=== PATIENT | male | born 1955 | race Caucasian/White ===

== ENCOUNTER → 2017-06-05 | Outpatient (CLI) | payer BC ==
[~2017-06-05] MED LIST: ADVIN25/60 INH; ALBUAER2 INH; BACL10TA PO; MULT-506 PO; RANI150T3 PO; WARF5TAB90 PO
--- NOTE | 2017-06-05 10:16 | DIAGNOSTIC IMAGING REPORT ---
LEFT FOOT 3 VIEWS HISTORY: PAIN IN LEFT FOOT COMPARISON: None. FINDINGS: There is no fracture or dislocation. Soft tissues are unremarkable. No radiopaque foreign bodies. Mild vascular calcifications. IMPRESSION: No fracture or dislocation within the left foot. Electronically signed by: Donovan Herman M.D. 06/05/2017 10:15 AM Dictated Date/Time: 06/05/2017 10:12 AM
== END | disposition home or self-care (01) ==
LOC: C.RAD1850 10:01
PROVIDERS: ATTEND Family Medicine
DX: M79.672 Pain in left foot (principal)

== ENCOUNTER → 2017-08-15 | Day surgery (SDC) | payer BC ==
[2017-08-05 09:11] VITALS: Ht 177.8 cm; Wt 71.8 kg
[~2017-08-15] VITALS: Ht 177.8 cm; Wt 71.8 kg
[~2017-08-15] MED LIST changes: -ADVIN25/60 INH; -ALBUAER2 INH; -BACL10TA PO; +CHOLCAP5 PO; -MULT-506 PO; +PROPOFOL IV EMULSION 10 MG/ML 20 ML VIAL IV ONE; -RANI150T3 PO; +VNTHFA/IN INH; +WARF5TAB7 PO; -WARF5TAB90 PO
[2017-08-15 12:07] LABS: INR 2.1 (0.9-1.1)
--- NOTE | 2017-08-15 13:01 | Endo History and Physical ---
History & Physical Date of Service: Aug 15, 2017. Chief Complaint: screening, family history of colon polyps Referring Physician: Dr. Arvizu History of Present Illness For colonoscopy Past Surgical History Hx Cardiac Surgery: No Hx Internal Defibrillator: No Hx Pacemaker: No Hx Abdominal Surgery: No Hx Post-Op Nausea and Vomiting: No Hx Cancer Surgery: No Hx Thoracic Surgery: No Hx Orthopedic: Yes (CERVICAL SURGERY) Hx Urinary Tract Surgery: No Family History Polyp Social History Smoking Status: Never Smoker Hx Substance Use: No Hx Alcohol Use: Yes (RARELY) Allergies Coded Allergies: No Known Allergies (Verified , 08/15/17) Current Medications Reported Home Medications Medications Dose Route/Sig Max Daily Dose Days Date Category Ventolin Hfa (Albuterol) 200 Puffs/88295 Mcg Aers 2-4 Puffs INH Q6H PRN 08/05/17 Reported Vitamin D3 (Cholecalciferol) 5,000 Unit Cap 1 Cap PO QAM 08/05/17 Reported Jantoven (Warfarin Sodium) 5 Mg Tab 5 Mg PO DAILY 08/05/17 Reported Vital Signs Weight (Kilograms): 71.82 Height (Feet): 5 Height (Inches): 10 Date Time Temp Pulse Resp B/P (MAP) Pulse Ox O2 Delivery O2 Flow Rate FiO2 08/15/17 12:43 37 85 18 107/71 (83) 95 Room Air Physical Exam General Appearance: + thin Respiratory/Chest: Respiratory effort: no dyspnea Cardiovascular: Heart Auscultation: RRR Abdomen: Inspection & Palpation: soft Assessment and Plan Fam hx colon polyps for colonoscopy
--- NOTE | 2017-08-15 13:40 | Discharge Instructions ---
Endoscopy Patient Instructions Date / Procedure(s) Performed Aug 15, 2017. Colonoscopy Allergy Information Coded Allergies: No Known Allergies (Verified , 08/15/17) Discharge Date / Findings Aug 15, 2017. diverticulosis, hemorrhoids Medication Instructions Stopped Medication(s): Coumadin last dose 08/14/17. Restart Stopped Medication(s): resume meds Reported Home Medications Medications Dose Route/Sig Max Daily Dose Days Date Category Ventolin Hfa (Albuterol) 200 Puffs/52628 Mcg Aers 2-4 Puffs INH Q6H PRN 08/05/17 Reported Vitamin D3 (Cholecalciferol) 5,000 Unit Cap 1 Cap PO QAM 08/05/17 Reported Jantoven (Warfarin Sodium) 5 Mg Tab 5 Mg PO DAILY 08/05/17 Reported Provider Instructions Activity Restrictions - No exercising or heavy lifting for 24 hours. - Do not drink alcohol the day of the procedure. - Do not drive a car or operate machinery until the day after the procedure. - Do not make any important decisions or sign important papers in 24 hours after the procedure. Following Day: - Return to full activity which may include returning to work/school. Diet Start your diet with liquids and light foods (jello, soup, juice, toast). Then eat your usual diet if not nauseated. Treatment For Common After Affects For mild abdominal pain, bloating, or excessive gas: - Rest - Eat lightly - Lie on right side Follow-Up Information Follow-up with Dr. Arvizu as scheduled Anesthesia Information What You Should Know You have had a procedure that required some medicine to reduce anxiety and discomfort. This treatment is called moderate sedation. After receiving the treatment, you may be sleepy, but you will be able to breathe on your own. The effects of the treatment may last for several hours. Follow these instructions along with Activity/Diet recommendations noted above: * Do NOT do anything where dizziness or clumsiness would be dangerous. * Rest quietly at home today, then you can be up and about tomorrow. * Have a responsible person stay with you the rest of today. * You may have had an I.V. today. If so, you may take the dressing off later today. Recommendations Call your doctor if: * Trouble breathing * Continuous vomiting for more than 24 hours * Temperature above 101 degrees * Severe abdominal pain or bloating * Pain not relieved by pain medicine ordered * There is increased drainage or redness from any incision * A large amount of rectal bleeding greater than 2-3 tablespoons. (If you had a polyp/s removed or have hemorrhoids, a small amount of blood - from the rectum is to be expected.) * You have any unanswered questions or concerns. IN THE EVENT OF A SERIOUS EMERGENCY, GO TO THE NEAREST EMERGENCY ROOM Your discharge instructions were prepared by provider Gera Rodriguez. Patient Instructions Signature Page León Galindo Patient (or Guardian) Signature/Date: I have read and understand the instructions given to me by my caregivers. Caregiver/RN/Doctor Signature/Date: The above-named patient and/or guardian has received patient instructions on this date. + Original Patient Signature Page (only) stays with chart. Please make copy for patient.
--- NOTE | 2017-08-15 13:50 | GI REPORT ---
Procedure Date: 08/15/2017 12:44 PM Procedure: Colonoscopy Indications: Family history of colonic polyps in a first-degree relative Medicines: Propofol total dose 240 mg IV Complications: No immediate complications. Estimated Blood Loss: Estimated blood loss: none. Procedure: Pre-Anesthesia Assessment: - Prior to the procedure, a History and Physical was performed, and patient medications, allergies and sensitivities were reviewed. The patient's tolerance of previous anesthesia was reviewed. - The risks and benefits of the procedure and the sedation options and risks were discussed with the patient. All questions were answered and informed consent was obtained. After I obtained informed consent, the scope was passed under direct vision. Throughout the procedure, the patient's blood pressure, pulse, and oxygen saturations were monitored continuously. The On-site loaner was introduced through the anus and advanced to the cecum, identified by appendiceal orifice and ileocecal valve. The colonoscopy was somewhat difficult due to significant looping. Successful completion of the procedure was aided by applying abdominal pressure. The patient tolerated the procedure well. The quality of the bowel preparation was good. Findings: Non-bleeding external and internal hemorrhoids were found during perianal exam. The hemorrhoids were moderate. Multiple diverticula were found in the sigmoid colon. Impression: - Non-bleeding external and internal hemorrhoids. - Diverticulosis in the sigmoid colon. - No specimens collected. Recommendation: - Discharge patient to home (ambulatory). - Continue present medications. - Repeat colonoscopy in 5 years for surveillance. - Return to primary care physician PRN. Gera Rodriguez M.D. Gera Rodriguez MD 08/15/2017 1:49:42 PM This report has been signed electronically. Note Initiated On: 08/15/2017 12:44 PM I attest to the content of the Intraoperative Record and orders documented therein, exceptions below
[2017-08-15 14:06] VITALS: BP 113/75; PULSE 84; O2SAT 94
--- NOTE | 2017-08-15 14:44 | Anesthesiology Progress Note ---
Anesthesia Post Op Note Date & Time Aug 15, 2017 at 14:44 Vital Signs Pain Intensity: 0 Vital Signs Past 12 Hours Date Time Temp Pulse Resp B/P (MAP) Pulse Ox O2 Delivery O2 Flow Rate FiO2 08/15/17 14:06 84 18 113/75 (88) 94 Room Air 08/15/17 13:50 86 18 107/69 (82) 94 Room Air 08/15/17 13:33 85 18 96/64 (75) 97 Nasal Cannula 08/15/17 12:43 37 85 18 107/71 (83) 95 Room Air Notes Mental Status: alert / awake / arousable, participated in evaluation Pt Amnestic to Procedure: Yes Nausea / Vomiting: adequately controlled Pain: adequately controlled Airway Patency, RR, SpO2: stable & adequate BP & HR: stable & adequate Hydration State: stable & adequate Anesthetic Complications: no major complications apparent
== END | disposition home or self-care (01) ==
LOC: C.GI 11:21
PROVIDERS: ATTEND Internal Medicine Gastroenterology
DX: Z12.11 Encounter for screening for malignant neoplasm of colon (principal); Z83.71 Family history of colonic polyps; K64.8 Other hemorrhoids; K57.30 Diverticulosis of large intestine without perforation or abscess without bleeding; J45.909 Unspecified asthma, uncomplicated; Z86.711 Personal history of pulmonary embolism; K21.9 Gastro-esophageal reflux disease without esophagitis; F79 Unspecified intellectual disabilities